=== PATIENT | male | born 1990 | race Caucasian/White ===

== ENCOUNTER 2024-07-05 19:28 | Emergency (ER) | payer MEDICAID, SELFPAY ==
[2024-07-05 19:32] VITALS: BP 144/82; PULSE 71; RESP 18; TEMP 36.3
== END 2024-07-05 21:17 | disposition left against medical advice (07) ==
LOC: ER 07-07 00:09
DX: Z53.09 Procedure and treatment not carried out because of other contraindication (principal)

== ENCOUNTER 2024-07-06 00:18 | Emergency (ER) | payer MEDICARE, MEDICAID, SELFPAY ==
[2024-07-06 00:21] VITALS: BP 145/69; PULSE 67; RESP 18; TEMP 36.9; O2SAT 99
[2024-07-06] MEDS: OLANZapine 10 MG TAB PO ×2 (00:49→09:45)
[2024-07-06] MEDS: LORazepam 1 MG TAB PO (00:49)
--- NOTE | 2024-07-06 00:50 | W.ED.GENAD ---
Discharge Plan Discharge Details Chief Complaint: PsychEval ED Provider: Gracie See Home Meds and New Rx's Prescriptions: No Action methocarbamol 500 mg tablet 500 mg PO ONCE clonazepam 0.5 mg tablet 0.5 mg PO QID gabapentin 100 mg capsule 200 mg PO TID quetiapine 200 mg tablet 200 mg PO HS HPI General Mode of arrival: ambulatory. Date/Time Provider Initiated Documentation: 07/06/24 00:23. Limitations to Documentation: no limitations. Information obtained by: patient. HPI Narrative: 33yo M presenting for I need to be helped. States I need to see and not think. I need to think and not imagine. I need to imagine...imagine...imagine...I need to see.. Tells me that he is scared; when asked what is scary states the numbers. Reports that he has seen mental health practioners of some kind in the past, unable to specifiy a diagnosis. Thinks he has been on haldol, seroquel, and klonopin in the past; none recently. Reports history of T2DM, not on insulin or medication. Otherwise in his usual state of health with no fevers, pain, shortness of breath, recent injuries or head injuries, or other concerns. Related Data Home Medications ?Medication ?Instructions ?Recorded ?Confirmed clonazepam 0.5 mg tablet 0.5 mg PO QID 07/06/24 07/06/24 gabapentin 100 mg capsule 200 mg PO TID 07/06/24 07/06/24 methocarbamol 500 mg tablet 500 mg PO ONCE 07/06/24 07/06/24 quetiapine 200 mg tablet 200 mg PO HS 07/06/24 07/06/24 Allergies Allergy/AdvReac Type Severity Reaction Status Date / Time Penicillins Allergy Unknown Verified 07/06/24 00:27 General Stated Complaint: PsychEval SANTA: 2 Review of Systems Narrative: see HPI Exam Narrative Exam Narrative: General: Alert, well appearing, well nourished Head: Normocephalic, atraumatic Neck: Trachea midline, ?Neck supple. Cardiac: ?RRR, no murmurs appreciated Resp: No respiratory distress. CTAB. Abd: ?Non-distended. Extremities: ?No deformities.? No peripheral edema. Neurologic: GCS 15. ? Moves all extremities freely against gravity Psych: Calm, cooperative.? Well groomed.? Mood very not good, affect flat.? Speech with normal volume, rate, rythym and tone. Tangential, occasional perseverating. No grandiosity. No psychomotor agitation. +AH +VH, denies command hallunications. Denies SI/HI. Does not appear to be responding to internal stimuli. Course Vital Signs Vital signs: Vital Signs Temperature 36.9 C 07/06/24 00:21 Pulse 67 07/06/24 00:21 Respiratory Rate 18 07/06/24 00:21 Blood Pressure 145/69 H 07/06/24 00:21 Pulse Oximetry 99 07/06/24 00:21 Temperature 36.9 C 07/06/24 00:21 Temperature Source Skin 07/06/24 00:21 Pulse 67 07/06/24 00:21 Respiratory Rate 18 07/06/24 00:21 Respiratory Effort Normal 07/06/24 00:26 Blood Pressure 145/69 H 07/06/24 00:21 Blood Pressure Position Sitting 07/06/24 00:21 Pulse Oximetry 99 07/06/24 00:21 Oxygen Delivery Method Room Air 07/06/24 00:21 Oxygen Flow Rate 0 07/06/24 00:21 Medical Decision Making 33yo M presenting voluntarily with psychosis. Calm on exam with no psychomotor agitation, is tangential and perseverating. Has never been to this hospital before; no records available for review; tells me he is supposed to be taking haldol and seroquel but has not been. Also reports T2DM, not on insulin. Willing to take PO zyprexa and ativan here which were given. Vital signs and physical exam reassuring, finger stick low 100's, medically cleared. [facility] evaluated patient; recommend inpatient treatment for medication initiation and patient is agreeable. Will start standing zyprexa here in the meantime, prn ativan. Will be signed out to oncoming physician, plan as above. Quality:SDOH Health Related Social Needs: No Data to Display [facility] Social History Smoking/Tobacco Use Status: Current every day Tobacco Type: cigarettes Smoking risk assessment performed?: Yes Alcohol Intake: current Alcohol Intake frequency: a few times a week Substance use type: does not use
--- NOTE | 2024-07-06 07:27 | ED.PROG_ITS ---
Date of service: 07/06/24 Time of Service: 07:28 Medical Decision Making Care assumed from outgoing provider. Patient is a 33-year-old gentleman presenting with psychosis. Currently pending voluntary inpatient psychiatric stay. Will be evaluated by mental health services this morning. 1000 [facility], she is familiar with patient and he has been admitted there recently. They accept the patient for admission. They will send their transport services. Patient transported by [id number] to [place], no issues with departure Quality:[facility] Health Related Social Needs: No Data to Display Sign Out Sign Out Data: Sign Out Comment: Voluntary, psychosis. Medically cleared. [facility] rec inpatient. Standing zyprexa ordered. Last updated by Gracie See MD at 07/06/24 07:15 Discharge Plan Disposition Patient Disposition: Psychiatric Hospital/Unit Specific Psychiatric Facility: [facility] Discharge Details Chief Complaint: PsychEval Clinical Impression: Psychosis Primary Care Provider: Unknown,Unknown ED Provider: Nikunj Dominguez Home Meds and New Rx's Prescriptions: No Action methocarbamol 500 mg tablet 500 mg PO ONCE clonazepam 0.5 mg tablet 0.5 mg PO QID gabapentin 100 mg capsule 200 mg PO TID quetiapine 200 mg tablet 200 mg PO HS
--- NOTE | 2024-07-06 08:38 | CMSP_ITS ---
Date of service: 07/06/24 Time of Service: 08:38 Care Management Safety Plan Status Status: Voluntary Reason for Wait Reason for Wait: Inpatient Admission Safety Plan Safety Plan: Chief Complaint: Psych Eval (pending) Per ER Visit Note 33yo M presenting for I need to be helped. States I need to see and not think. I need to think and not imagine. I need to imagine...imagine...imagine...I need to see.. Tells me that he is scared; when asked what is scary states the numbers. Reports that he has seen mental health practitioners of some kind in the past, unable to specifiy a diagnosis. Thinks he has been on haldol, seroquel, and klonopin in the past; none recently. CM will respond to ED to assess patient after patient has been medically cleared and assessed by screener. If screener deems patient meets criteria for psychiatric stabilization CM will facilitate interdepartmental huddle with [facility] screener for safety planning considerations and meet with patient to review [facility] policy and safety plan, establish individual wishes for treatment and maintain patient rights. In the interim; please note safety plan below to guide patient care while awaiting further assessment in the ED. SAFETY PLAN: 1. Will remain on suicide precautions and in paper clothes. 2. Will remain in room under direct supervision of one-on-one staff at all times provided by [employer] engineering and operations director. 3. May have paper cups, plates, finger foods as well as a cardboard spoon with which to eat meals. 4. Follow [facility] Management of the Admitted Behavioral Health Patient policy. 5. Personal care: Comfort bath system only at this time. 6. Bathroom privileges: with escort in ED. Available in room without limitation on Med/Surg. 6. No personal belongings at this time; per RN discretion. 7. No visitors at this time. 8. Phone contact limited to legal contact at this time. 9. Activities: Music tablet per RN discretion. Med/Surg: Television and remote available at RN discretion. 10. Due to VOLUNTARY status, if patient wishes to leave [facility], staff will contact [facility] Crisis Screener ([phone]) and On-Call Charge Accounts Audit Clerk ([phone]) as soon as possible. In the event of elopement, notify [facility] Police ([phone]). If deemed appropriate for inpatient psychiatric care, safety plan will be established with patient, and care team, to adhere to patient goals, identify restrictions based on behavioral status, address nutrition, and determine allowed personal belongings, tools for hygiene and personal care. As well plan will determine level of activity including ambulation, level of supervision, visitors, and determine privileges based on level of acuity, behaviors and level of engagement by patient.
[2024-07-06 15:15] LABS: *AMPHETAMINES SCREEN URINE Negative (Negative); *BARBITURATES SCREEN URINE Negative (Negative); *BENZODIAZEPINES SCREEN URINE Negative (Negative); Cannabinoids THC Positive (Negative); Cocaine Screen,Urine Positive (Negative); METHADONE URINE SCREEN Negative (Negative); OPIATES URINE SCREEN Negative (Negative)
[2024-07-06 15:18] LABS: Tricyclic Antidepressants Negative (Negative)
== END 2024-07-06 14:25 ==
PROVIDERS: Emergency Provider Emergency Medicine
DX: F29 Unspecified psychosis not due to a substance or known physiological condition (principal); E11.9 Type 2 diabetes mellitus without complications
CPT/HCPCS: 00123; 36416; 80307; 82962; 99285